=== PATIENT | male | born 1965 | race Caucasian/White ===

== ENCOUNTER → 2021-03-07 | Outpatient (CLI) | payer OTHER ==
--- NOTE | 2021-03-07 12:26 | RAD ---
EXAM: Chest, 2 views. HISTORY: Shortness of breath. Chest pain. COMPARISON: None. FINDINGS: 2 views of the chest are obtained. There is no infiltrate, pleural effusion or pneumothorax . There is biapical emphysema with subpleural bleb formation. The heart is normal in size. IMPRESSION: 1. No acute pulmonary finding. 2. Biapical emphysema. Electronically signed by: Amanda Machado MD (03/07/2021 12:24 PM) [id number]
--- NOTE | 2021-03-07 12:26 | RAD ---
EXAM: Lumbar spine, 3 views. HISTORY: Pain. COMPARISON: None. FINDINGS: 3 views of the lumbar spine are obtained. There is mild lumbar levoscoliosis centered at L3 -L4. There is minimal retrolisthesis of L4 on L5. There is multilevel endplate remodeling. There are few small endplate Schmorl's nodes. IMPRESSION: Mild multilevel degenerative change. No acute osseous finding. Electronically signed by: Amanda Machado MD (03/07/2021 12:24 PM) [id number]
== END ==
LOC: RAD 09:56
PROVIDERS: ATTEND Family Medicine
DX: Z02.71 Encounter for disability determination (principal); M43.16 Spondylolisthesis, lumbar region; M41.86 Other forms of scoliosis, lumbar region; M51.46 Schmorl's nodes, lumbar region; J43.9 Emphysema, unspecified
CPT/HCPCS: 71046; 72100